=== PATIENT | female | born 1965 | race Caucasian/White ===

== ENCOUNTER → 2016-09-27 | Outpatient (REF) | payer OTHER ==
[2016-09-27 16:38] LABS: BASO % 0.5 % (0.0-1.0); EOS # 0.2 K/mm3 (0.0-0.50); LARGE UNSTAINED CELL # 0.2 K/mm3 (0.0-0.4); LARGE UNSTAINED CELL % 2.1 % (0.0-4.0); LYMPH # 1.2 K/mm3 (1.5-4.5); LYMPH % 14.5 % (24.0-44.0); MEAN CORPUSCULAR HGB CONC 32.3 g/dl (32.0-36.5); MONO # 0.5 K/mm3 (0.0-0.8); NEUTROPHILS # 5.6 K/mm3 (1.8-7.7); NEUTROPHILS % 74.9 % (36.0-66.0); PLATELET COUNT, AUTOMATED 281 k/mm3 (150-450); RED CELL DISTRIBUTION WIDTH 13.9 % (11.5-14.5); WHITE BLOOD COUNT 7.5 K/mm3 (4.0-10.0)
[2016-09-27 17:23] LABS: FOLATE > 24.0 NG/ML (>5.4); VITAMIN B12 LEVEL 267 PG/ML (247-911)
[2016-09-27 17:25] LABS: ALBUMIN 4.1 GM/DL (3.2-5.2); ALBUMIN/GLOBULIN RATIO 1.41 (1.00-1.93); ALKALINE PHOSPHATASE 75 U/L (45-117); ALT/SGPT 15 U/L (12-78); ANION GAP 8 MEQ/L (8-16); AST/SGOT 10 U/L (15-37); BILIRUBIN,TOTAL 0.9 MG/DL (0.2-1.0); BLOOD UREA NITROGEN 14 MG/DL (7-18); CALCIUM LEVEL 8.9 MG/DL (8.5-10.1); CARBON DIOXIDE LEVEL 28 MEQ/L (21-32); CHLORIDE LEVEL 105 MEQ/L (98-107); CREATININE FOR GFR 0.69 MG/DL (0.55-1.02); GLOMERULAR FILTRATION RATE > 60.0 (>51); GLUCOSE, FASTING 89 MG/DL (70-105); POTASSIUM SERUM 4.8 MEQ/L (3.5-5.1); SODIUM LEVEL 141 MEQ/L (136-145); THYROXINE (T4) 10.5 UG/DL (4.5-12.0)
== END ==
LOC: M SFHCCLAY 10:20
PROVIDERS: ATTEND Family Medicine
DX: R26.89 Other abnormalities of gait and mobility (principal); D64.9 Anemia, unspecified; M35.9 Systemic involvement of connective tissue, unspecified

== ENCOUNTER → 2016-10-19 | Outpatient (CLI) | payer OTHER ==
--- NOTE | 2016-10-19 11:24 | REP ---
MRI LUMBAR SPINE WITHOUT CONTRAST: 10/19/2016. Comparison: x-ray 05/17/2016. Clinical history: Lumbar pain with radiculopathy in the right lower extremity. Technique: Sagittal T1, T2 and STIR images with axial T1 and T2 sequences through the lumbar spine provided. Findings: The normal lordosis is maintained. Vertebral body heights and marrow signal are normal on all sequences. There is loss of disc water signal from L2-3 through L4-5, less at the other two lumbar levels. The disc space heights are also decreased at L4-5 and L3-4, less at L2-3. The conus terminates at the L1-2 level. The T11-12, T12-L1, L1-2 and L2-3 disc levels show no disc bulge or herniation and no spinal or foraminal stenosis. At L3-4, there is a minimal disc bulge but not causing any significant spinal stenosis. The foramina show adequate perineural fat without nerve root compression. At L4-L5, there is a broad-based disc bulge flattening the ventral thecal sac. This abuts the L5 nerve roots but does not displace them. There is some ligamentum flavum and facet hypertrophic change but the cross-sectional area of the canal was marginally adequate. Lateral recesses are preserved. Foramina show some loss of perineural fat, right greater than left with some minor encroachment and nerve root compression of the right L4 root. At L5-S1, there is very minimal disc bulge flattening the ventral thecal sac but not abutting or displacing the S1 nerve roots in the central canal. Cross-sectional area of the canal was ample. Foramina shows adequate perineural fat without nerve root compression. There is hypertrophic facet change. Impression: 1. Broad-based disc bulge extending into the foramina flattening the ventral thecal sac and abutting the L5 nerve roots at the L4-5 level. Combined with ligamentum and facet hypertrophic change, there is some mild central canal stenosis. The foramina show mild encroachment with nerve root compression of the L4 root on the right. 2. Disc bulges at L3-4 and L5-S1 without significant spinal or foraminal stenosis. No other finding. Signed by Pa Duarte MD 10/19/2016 05:13 P
== END ==
LOC: M RAD 10:10
PROVIDERS: ATTEND Family Medicine
DX: M54.17 Radiculopathy, lumbosacral region (principal); M51.06 Intervertebral disc disorders with myelopathy, lumbar region; M48.06 Spinal stenosis, lumbar region; M51.27 Other intervertebral disc displacement, lumbosacral region

== ENCOUNTER → 2018-08-21 | Outpatient (REF) | payer OTHER | LOC: M SFHCCLAY 11:22 | PROVIDERS: ATTEND Family Medicine | DX: R30.0 Dysuria (principal) ==

== ENCOUNTER → 2019-03-17 | Outpatient (CLI) | payer OTHER ==
--- NOTE | 2019-03-17 13:14 | REP ---
REASON: Shoulder pain. No priors. No trauma. Motion artifact obscures the fine detail on multiple images in various sequences. There is mild to moderate hypertrophic degenerative change seen involving the acromioclavicular joint. The acromion process is type II. There is patchy linear T2 hypersignal seen throughout the supraspinatus tendon both sub-bursal and articular surfaces of which are irregular. There is no evidence of supraspinatus muscle belly atrophy or retraction. There is fluid in the subacromial space. There is mild patchy T2 hypersignal in the subscapularis tendon. The teres minor tendon and infraspinatus tendons are intact and of normal appearing low signal throughout. The biceps tendon resides within the bicipital groove. There is no gross glenohumeral joint effusion. There is a tiny amount of fluid in the subcoracoid recess. Tiny T2 hypersignal foci are seen in the superolateral humeral head subjacent to the insertion of the supraspinatus tendon. There is thickening of the coracohumeral and coracoacromial ligaments. IMPRESSION: 1. Supraspinatus tendonitis/tendinopathy which is rather advanced. I cannot rule out the possibility of partial full thickness tears. 2. Coracohumeral and coracoacromial ligamentous thickening suggesting the clinical diagnosis of impingement syndrome. 3. Mild subscapularis tendonitis/tendinopathy. 4. Early cystic degenerative changes humeral head. 5. Acromioclavicular joint degenerative joint disease. 6. All other findings as described above. Electronically Signed by Max Rosenbaum DO 03/17/2019 01:41 P
== END ==
LOC: M RAD 10:12
PROVIDERS: ATTEND Family Medicine
DX: M25.511 Pain in right shoulder (principal)

== ENCOUNTER → 2021-04-03 | Outpatient (REF) | payer OTHER | LOC: M SFHCCLAY 12:59 | PROVIDERS: ATTEND Physician Assistant | DX: R05 Cough (principal) ==

== ENCOUNTER → 2022-10-26 | Outpatient (REF) | payer OTHER ==
[2022-10-26 18:36] LABS: BASO # 0.1 10^3/uL (0.0-0.2); BASO % 0.5 % (0.0-1.0); EOS # 0.1 10^3/uL (0.0-0.5); EOS % 1.1 % (0.0-3.0); HEMATOCRIT 40.2 % (36.0-47.0); HEMOGLOBIN 12.9 g/dl (12.0-15.5); LYMPH # 1.4 10^3/uL (1.5-5.0); LYMPH % 14.9 % (24.0-44.0); MEAN CORPUSCULAR HEMOGLOBIN 30.6 pg (27.0-33.0); MEAN CORPUSCULAR HGB CONC 32.1 g/dl (32.0-36.5); MEAN CORPUSCULAR VOLUME 95.3 fl (80.0-96.0); MONO # 0.5 10^3/uL (0.0-0.8); MONO % 5.4 % (2.0-8.0); NEUTROPHILS # 7.2 10^3/uL (1.5-8.5); NEUTROPHILS % 77.9 % (36.0-66.0); PLATELET COUNT, AUTOMATED 318 10^3/uL (150-450); RED BLOOD COUNT 4.22 10^6/uL (4.00-5.40); WHITE BLOOD COUNT 9.2 10^3/uL (4.0-10.0)
[2022-10-26 19:08] LABS: HEMOGLOBIN A1c 4.9 % (4.0-6.0)
[2022-10-26 19:12] LABS: ALBUMIN 4.3 G/DL (3.2-5.2); ALKALINE PHOSPHATASE 82 U/L (46-116); ALT/SGPT 13 U/L (7.0-40); AST/SGOT 15 U/L (<34); BILIRUBIN,TOTAL 0.9 MG/DL (0.3-1.2); BLOOD UREA NITROGEN 14 MG/DL (9-23); CALCIUM LEVEL 9.8 MG/DL (8.5-10.1); CARBON DIOXIDE LEVEL 31 MMOL/L (20-31); CHLORIDE LEVEL 106 MMOL/L (98-107); CHOLESTEROL LEVEL 184 MG/DL (<200); CHOLESTEROL RISK RATIO 2.58 (<5); CREATININE FOR GFR 0.63 MG/DL (0.55-1.30); GLOMERULAR FILTRATION RATE > 60.0 (>51); GLUCOSE, FASTING 88 MG/DL (60-100); HDL CHOLESTEROL 71.2 MG/DL (>40); LDL CHOLESTEROL 84.2 MG/DL (<100); NON-HDL-C 112.8 MG/DL; POTASSIUM SERUM 4.2 MMOL/L (3.5-5.1); SODIUM LEVEL 139 MMOL/L (136-145); THYROID STIMULATING HORMONE 0.591 uIU/ML (0.55-4.78); TOTAL PROTEIN 6.8 G/DL (5.7-8.2); TRIGLYCERIDES LEVEL 143 MG/DL (<150)
== END ==
LOC: M SFHCCLAY 13:27
PROVIDERS: ATTEND Family Medicine
DX: Z13.0 Encounter for screening for diseases of the blood and blood-forming organs and certain disorders involving the immune mechanism (principal); Z13.220 Encounter for screening for lipoid disorders; Z13.1 Encounter for screening for diabetes mellitus